=== PATIENT | female | born 1995 | race African-American/Black ===

== ENCOUNTER 2017-07-28 14:37 | Emergency (ER) | payer MEDICAID ==
[~2017-07-28] VITALS: Ht 162.6 cm; Wt 71.2 kg
[2017-07-28 14:47] VITALS: BP 130/77
[2017-07-28] MEDS ORDERED: BUPR-173 PO (15:26)
[2017-07-28] MEDS ORDERED: ARIP400S SQ (15:26)
[2017-07-28] MEDS ORDERED: TRAZ100T15 PO (15:26)
== END 2017-07-28 15:28 | disposition home or self-care (01) ==
LOC: ED 15:20
DX: J04.0 Acute laryngitis (principal)
CPT/HCPCS: 99283